=== PATIENT | male | born 1990 | race Caucasian/White ===

== ENCOUNTER 2022-03-06 00:54 | Emergency (ER) | payer MEDICAID ==
[~2022-03-06] VITALS: Ht 167.6 cm; Wt 90.7 kg
[2022-03-06 01:22] VITALS: BP 153/76
--- NOTE | 2022-03-06 01:30 | NUR ---
TO LOBBY FOLLOWING TRIAGE. DR. JOHNSON EXAMINED PT IN TRIAGE
[2022-03-06] MEDS ORDERED: IBUPROFEN 800 MG TAB PO ONE (01:35)
--- NOTE | 2022-03-06 02:05 | NUR ---
Patient discharged with v/s stable. Written and verbal after care instructions given and explained. Patient verbalized understanding. Ambulatory with steady gait. All questions addressed prior to discharge. Advised to follow up with PMD.
[2022-03-06 02:06] VITALS: BP 153/76
== END 2022-03-06 02:05 | disposition home or self-care (01) ==
LOC: MED 00:54
DX: R51.9 Headache, unspecified (principal)
CPT/HCPCS: 99282